=== PATIENT | female | born 1985 | race Caucasian/White ===

== ENCOUNTER 2022-07-04 09:47 | Emergency (ER) | payer OTHER ==
[2022-07-04] MEDS ORDERED: Sodium Chloride 0.9% 10 ML Syringe FLUSH PRN (11:02)
== END 2022-07-04 14:11 | disposition home or self-care (01) ==
LOC: JD.ED 09:47
DX: O20.9 Hemorrhage in early pregnancy, unspecified (principal); Z3A.09 9 weeks gestation of pregnancy
CPT/HCPCS: 36415; 76817; 76817-26; 84702; 85025; 86900; 86901; 99284

== ENCOUNTER 2023-01-15 06:47 | Inpatient (IN) | payer OTHER ==
[~2023-01-15 06:47] MED LIST: Ropivacaine 0.2% PF 2 MG/ML 20 ML SDV ONE
[2023-01-15] MEDS ORDERED: Sodium Chloride 0.9% 10 ML Syringe FLUSH PRN (07:50)
[2023-01-15] MEDS ORDERED: Lactated Ringers 1,000 ML IV SCH (08:00)
[2023-01-15] MEDS ORDERED: Misoprostol 25 MCG (1/4 of 100 MCG) Tab VAG ONE (08:00)
[2023-01-15] MEDS ORDERED: Penicillin G Potassium 5 MILLUNITS in Sodium Chloride 0.9% 100 ML IV ONE ×2 (08:30→12:00)
[2023-01-15 08:51] LABS: BASOPHILS ABSOLUTE AUTO 0.01 K/mm3 (0.01-0.08); BASOPHILS PERCENT AUTO 0.1 % (0.1-1.2); EOSINOPHILS ABSOLUTE AUTO 0.06 K/mm3 (0.04-0.36); EOSINOPHILS PERCENT AUTO 0.7 (0.7-5.8); HEMATOCRIT 37.4 % (34.1-44.9); HEMOGLOBIN 12.3 gm/dl (11.2-15.7); IMMATURE GRAN ABSOLUTE AUTO 0.04 K/mm3 (0.00-0.10); IMMATURE GRAN PERCENT AUTO 0.5 % (<=1.0); LYMPHOCYTES ABSOLUTE AUTO 1.76 K/mm3 (1.18-3.74); LYMPHOCYTES PERCENT AUTO 20.5 % (19.3-51.7); MEAN CORPUSCULAR HGB CONC 32.9 g/dl (32.2-35.5); MEAN CORPUSCULAR VOLUME 88.2 fl (79.4-94.8); MEAN PLATELET VOLUME 11.1 fl (9.4-12.3); NEUTROPHILS ABSOLUTE AUTO 6.13 K/mm3 (1.56-6.13); NEUTROPHILS PERCENT AUTO 71.2 % (34.0-71.1); PLATELET COUNT,PLT 196 K/mm3 (182-369); RED BLOOD CELL COUNT 4.24 M/mm3 (3.98-5.22)
[2023-01-15 08:55] LABS: PROTEIN CREATININE RATIO,URINE 103.4 mg/g (0-149); PROTEIN,URINE RANDOM 15.2 mg/dL (0.0-11.8)
[2023-01-15 09:16] LABS: CREATININE 0.5 mg/dL (0.55-1.02); EST CRCL DRUG DOSING (CG) 162.56 mL/min; URIC ACID 4.6 mg/dL (2.6-6.0)
[2023-01-15] MEDS ORDERED: Bupivacaine/fentaNYL/NS 100 ML Bag EPIDUR PRN (10:16)
[2023-01-15] MEDS ORDERED: fentaNYL 100 MCG/2 ML SDV EPIDUR PRN (10:16)
[2023-01-15] MEDS ORDERED: diphenhydrAMINE 50 MG/ML SDV IVPUSH PRN (10:16)
[2023-01-15] MEDS ORDERED: ePHEDrine 50 MG/ML SDV IVPUSH PRN (10:16)
[2023-01-15] MEDS: Oxytocin/Lactated Ringers 10 UNIT/1,000 ML BAG IV SCH ×2 (11:52→21:35)
[2023-01-15] MEDS ORDERED: Penicillin G Potassium 2.5 MILLUNITS in Sodium Chloride 0.9% 100 ML IV SCH ×2 (14:30→18:00)
[2023-01-15] MEDS: Penicillin G Potassium 2.5 MILLUNITS in Sodium Chloride 0.9% 100 ML IV SCH (18:03)
[2023-01-15] MEDS ORDERED: Benzocaine/Menthol 20%-0.5% Spray 78 GM Cannister TOP PRN (22:30)
[2023-01-15] MEDS ORDERED: Witch Hazel Medicated Pads 40/Jar TOP PRN (22:30)
[2023-01-16] MEDS: Sodium Chloride 0.9% 10 ML Syringe FLUSH SCH (01:02)
[2023-01-16] MEDS: Penicillin G Potassium 2.5 MILLUNITS in Sodium Chloride 0.9% 100 ML IV SCH (01:02)
[2023-01-16] MEDS: Ibuprofen 600 MG Tab PO PRN ×2 (03:15→10:08)
[2023-01-16] MEDS: Acetaminophen 325 MG Tab PO PRN ×2 (06:54→16:01)
[2023-01-16] MEDS ORDERED: Calcium Carbonate 500 MG Tab.Chew PO PRN (20:44)
== END 2023-01-17 08:50 | disposition home or self-care (01) | DRG 807 ==
LOC: JD.OB 06:47 → OBSVTOIN 21:06 → JD.OB 21:06
PROVIDERS: ADMIT Family Medicine; ATTEND Family Medicine
PROC: 10E0XZZ Delivery of Products of Conception, External Approach (ICD-10-PCS; principal; 2023-01-15)
PROC: 3E0P7VZ Introduction of Hormone into Female Reproductive, Via Natural or Artificial Opening (ICD-10-PCS; 2023-01-15)
PROC: 3E033VJ Introduction of Other Hormone into Peripheral Vein, Percutaneous Approach (ICD-10-PCS; 2023-01-15)
PROC: 10907ZC Drainage of Amniotic Fluid, Therapeutic from Products of Conception, Via Natural or Artificial Opening (ICD-10-PCS; 2023-01-15)
PROC: 3E0R3BZ Introduction of Anesthetic Agent into Spinal Canal, Percutaneous Approach (ICD-10-PCS; 2023-01-15)
PROC: 00HU33Z Insertion of Infusion Device into Spinal Canal, Percutaneous Approach (ICD-10-PCS; 2023-01-15)
DX: O13.4 Gestational [pregnancy-induced] hypertension without significant proteinuria, complicating childbirth (principal); Z37.0 Single live birth; O71.82 Other specified trauma to perineum and vulva; Z79.82 Long term (current) use of aspirin; Z3A.37 37 weeks gestation of pregnancy
CPT/HCPCS: 36415; 51702; 59025; 59409; 82565; 82570; 83615; 84156; 84450; 84460; 84520; 84550; 85025; 86850; 86900; 86901; A9270-GY; J2540; J2590; J2795; J3490; J7120

== ENCOUNTER 2023-10-01 07:10 | Emergency (ER) | payer OTHER | END 2023-10-01 07:55 | disposition home or self-care (01) | LOC: JD.ED 07:10 | DX: N81.4 Uterovaginal prolapse, unspecified (principal); I10 Essential (primary) hypertension | CPT/HCPCS: 99284 ==

== ENCOUNTER 2025-05-30 12:07 | Emergency (ER) | payer OTHER ==
[2025-05-30 12:47] LABS: BASOPHILS ABSOLUTE AUTO 0.0 K/mm3 (0.0-0.2); BASOPHILS PERCENT AUTO 0.3 % (0.0-1.0); EOSINOPHILS ABSOLUTE AUTO 0.0 K/mm3 (0.0-0.4); EOSINOPHILS PERCENT AUTO 0.4 % (0.0-6.0); IMMATURE GRAN ABSOLUTE AUTO 0.03 K/mm3 (0.00-0.05); IMMATURE GRAN PERCENT AUTO 0.3 % (0.0-0.4); LYMPHOCYTES ABSOLUTE AUTO 1.8 K/mm3 (1.0-4.8); LYMPHOCYTES PERCENT AUTO 17.5 % (24.0-44.0); MEAN PLATELET VOLUME 9.8 fl (9.4-12.3); MONOCYTES ABSOLUTE AUTO 0.6 K/mm3 (0.0-0.8); MONOCYTES PERCENT AUTO 6.1 % (0.0-8.0); NEUTROPHILS ABSOLUTE AUTO 7.6 K/mm3 (1.8-7.7); NEUTROPHILS PERCENT AUTO 75.4 % (41.0-71.0); NRBC ABSOLUTE 0.00 (0.00-0.02); NRBC PERCENT 0.0 % (0.0-0.2); PLATELET COUNT,PLT 245 K/mm3 (150-400); RED BLOOD CELL COUNT 4.87 M/mm3 (4.10-5.30); WHITE BLOOD CELL COUNT,WBC 10.11 K/mm3 (3.9-11.3)
[2025-05-30 13:09] LABS: APPEARANCE,URINE CLEAR (Clear); GLUCOSE,URINE NEGATIVE (Negative); OCCULT BLOOD,URINE 1+ (Negative)
[2025-05-30 13:18] LABS: A/G RATIO 0.9 (1-2); ALANINE AMINOTRANSFERASE,ALT 24.0 U/L (14-59); ASPARTATE AMNIOTRANSFERASE,AST 14.0 U/L (15-37); BILIRUBIN TOTAL 0.7 mg/dL (0.2-1.0); BLOOD UREA NITROGEN,BUN 15.0 mg/dL (7-18); CARBON DIOXIDE,CO2 24.0 mEq/L (21-32); CHLORIDE,CL 104.0 mEq/L (98-107); CREATININE 0.6 mg/dL (0.55-1.02); EST CRCL DRUG DOSING (CG) 131.56 mL/min; ESTIMATED GFR 117.0 mL/min (>60); GLUCOSE RANDOM 98.0 mg/dL (70-99); POTASSIUM,K 4.2 mEq/L (3.5-5.1); PROTEIN TOTAL,TP 7.8 g/dl (6.4-8.2); SODIUM,NA 140.0 mEq/L (136-145)
[2025-05-30] MEDS ORDERED: Sodium Chloride 0.9% 10 ML Syringe FLUSH PRN (14:15)
[2025-05-30] MEDS: Ketorolac 30 MG/ML SDV IVPUSH ONE (14:20)
[2025-05-30] MEDS: Iopamidol 612 MG/ML 100 ML Bottle IVPUSH ONE (14:33)
[2025-05-30] MEDS: Sodium Chloride 0.9% 10 ML Syringe FLUSH PRN (14:34)
[2025-05-30] MEDS: Iopamidol 612 MG/ML 30 ML SDV IVPUSH ONE (14:34)
[2025-05-30] MEDS: Amoxicillin/Clavulanate K 875-125 MG Tab PO ONE (15:34)
== END 2025-05-30 15:45 | disposition home or self-care (01) ==
LOC: JD.ED 12:07
DX: K57.32 Diverticulitis of large intestine without perforation or abscess without bleeding (principal); I10 Essential (primary) hypertension; Z79.899 Other long term (current) drug therapy
CPT/HCPCS: 36415; 74177; 76830; 80053; 81001; 83690; 84703; 85025; 86140; 87086; 96374; 99284; A9270; J1885; Q9967